=== PATIENT | male | born 1940 | race Caucasian/White ===

== ENCOUNTER 2024-08-19 09:04 | Emergency (ER) | payer MEDICARE ==
[~2024-08-19] VITALS: Ht 188 cm; Wt 104.3 kg
[~2024-08-19 09:04] MED LIST: AMOX TR-K CLV1 EAC2 PO; ELIQUIS5 MG PO; Z.0.LISINOPRIL2.5 MG; [UNRECOGNIZED DRUG - OTHER]
[2024-08-19 09:12] VITALS: TEMP 98.7
[2024-08-19 09:33] VITALS: PULSE 89; RESP 20
[2024-08-19 09:40] LABS: BASOPHILS % 0.4 % (0.0-1.0); EOSINOPHILS # (AUTO) 0.2 (0.0-0.4); EOSINOPHILS % 2.5 % (0.0-6.0); HEMOGLOBIN 14.1 g/dL (14.0-18.0); LYMPHOCYTES # (AUTO) 0.6 (1.0-3.2); LYMPHOCYTES % 7.4 % (18.0-39.1); MEAN CORPUSCULAR HEMOGLOBIN 32.1 pg (28-32); MEAN CORPUSCULAR HGB CONC 33.6 g/dL (31-35); MEAN CORPUSCULAR VOLUME 95.7 fL (81-99); MONOCYTES # (AUTO) 0.9 (0.2-0.8); MONOCYTES % 12.1 % (4.4-11.3); NEUTROPHILS # (AUTO) 5.8 (2.1-6.9); NEUTROPHILS % 76.5 % (38.7-80.0); PLATELET COUNT 243 x10e3/uL (140-360); RED BLOOD COUNT 4.39 x10e6/uL (4.3-5.7); RED CELL DISTRIBUTION WIDTH 12.1 % (11.7-14.4); WHITE BLOOD COUNT 7.58 x10e3/uL (4.8-10.8)
[2024-08-19 10:02] LABS: CORONAVIRUS COVID-19 AG NEGATIVE (NEGATIVE); INFLUENZA A AG NEGATIVE (NEGATIVE); INFLUENZA B AG NEGATIVE (NEGATIVE)
[2024-08-19 10:07] LABS: ALBUMIN 3.4 g/dL (3.5-5.0); ALBUMIN/GLOBULIN RATIO 0.9 (0.8-2.0); ANION GAP 15.4 mmol/L (8-16); BILIRUBIN,TOTAL 1.1 mg/dL (0.2-1.2); CALCIUM 8.7 mg/dL (8.4-10.2); CREATININE, SERUM 0.77 mg/dL (0.72-1.25); POTASSIUM 4.4 mmol/L (3.5-5.1); TOTAL PROTEIN 7.2 g/dL (6.5-8.1)
[2024-08-19 10:13] LABS: TROPONIN I 0.012 ng/mL (0-0.300)
[2024-08-19] MEDS ORDERED: DOXYCYCLINE HY100 MG PO (10:35)
[2024-08-19 10:45] VITALS: BP 132/78; PULSE 78; RESP 18; TEMP 97.5; O2SAT 96
== END 2024-08-19 10:46 | disposition home or self-care (01) ==
LOC: ER 09:10
DX: R06.02 Shortness of breath (principal); J06.9 Acute upper respiratory infection, unspecified; Z11.52 Encounter for screening for COVID-19; R94.31 Abnormal electrocardiogram [ECG] [EKG]
CPT/HCPCS: 36415; 71046; 80053; 84484; 85025; 93005; 99284

== ENCOUNTER 2024-08-23 13:29 | Emergency (ER) | payer MEDICARE ==
[~2024-08-23] VITALS: Ht 188 cm; Wt 104.3 kg
[2024-08-23 13:29] VITALS: TEMP 98.9
[~2024-08-23 13:29] MED LIST changes: +DOXYCYCLINE HY100 MG PO
[2024-08-23 14:09] LABS: BASOPHILS % 0.4 % (0.0-1.0); EOSINOPHILS # (AUTO) 0.2 (0.0-0.4); EOSINOPHILS % 2.2 % (0.0-6.0); HEMOGLOBIN 13.4 g/dL (14.0-18.0); LYMPHOCYTES # (AUTO) 0.7 (1.0-3.2); LYMPHOCYTES % 9.2 % (18.0-39.1); MEAN CORPUSCULAR HEMOGLOBIN 32.2 pg (28-32); MEAN CORPUSCULAR HGB CONC 34.4 g/dL (31-35); MEAN CORPUSCULAR VOLUME 93.8 fL (81-99); MONOCYTES # (AUTO) 0.8 (0.2-0.8); MONOCYTES % 10.2 % (4.4-11.3); NEUTROPHILS # (AUTO) 6.2 (2.1-6.9); NEUTROPHILS % 77.3 % (38.7-80.0); PLATELET COUNT 252 x10e3/uL (140-360); RED BLOOD COUNT 4.16 x10e6/uL (4.3-5.7); RED CELL DISTRIBUTION WIDTH 12.2 % (11.7-14.4); WHITE BLOOD COUNT 8.05 x10e3/uL (4.8-10.8)
[2024-08-23 14:29] LABS: ALBUMIN 3.3 g/dL (3.5-5.0); ALBUMIN/GLOBULIN RATIO 0.9 (0.8-2.0); ANION GAP 13.2 mmol/L (8-16); CALCIUM 8.5 mg/dL (8.4-10.2); CREATININE, SERUM 0.82 mg/dL (0.72-1.25); POTASSIUM 4.2 mmol/L (3.5-5.1)
[2024-08-23 14:35] LABS: TROPONIN I 0.008 ng/mL (0-0.300)
[2024-08-23 16:08] VITALS: PULSE 63; RESP 16
[2024-08-23 16:37] VITALS: BP 141/79; PULSE 66; RESP 18; TEMP 98.4; O2SAT 95
== END 2024-08-23 16:36 | disposition home or self-care (01) ==
LOC: ER 13:37
DX: R07.89 Other chest pain (principal); J06.9 Acute upper respiratory infection, unspecified; I48.91 Unspecified atrial fibrillation
CPT/HCPCS: 36415; 71045; 80053; 83880; 84484; 85025; 93005; 99284

== ENCOUNTER 2024-08-29 08:49 | Inpatient (IN) | payer MEDICARE ==
[~2024-08-29] VITALS: Ht 188 cm; Wt 104.3 kg
[2024-08-29] VITALS (7 sets, daily range): BP systolic 111–150; BP diastolic 64–91; PULSE 61–70; RESP 18–20; TEMP 97.6–98.5; O2SAT 92–99
[2024-08-29] MEDS ORDERED: SODIUM CHLORIDE FLUSH 10 ML SYR IV PRN (09:30)
[2024-08-29 10:55] LABS: BASOPHILS % 0.3 % (0.0-1.0); EOSINOPHILS # (AUTO) 0.2 (0.0-0.4); EOSINOPHILS % 2.3 % (0.0-6.0); HEMATOCRIT 41.5 % (38.2-49.6); HEMOGLOBIN 14.4 g/dL (14.0-18.0); LYMPHOCYTES # (AUTO) 0.7 (1.0-3.2); LYMPHOCYTES % 7.9 % (18.0-39.1); MEAN CORPUSCULAR HEMOGLOBIN 32.1 pg (28-32); MEAN CORPUSCULAR HGB CONC 34.7 g/dL (31-35); MEAN CORPUSCULAR VOLUME 92.6 fL (81-99); MONOCYTES # (AUTO) 0.9 (0.2-0.8); MONOCYTES % 9.8 % (4.4-11.3); NEUTROPHILS # (AUTO) 7.3 (2.1-6.9); NEUTROPHILS % 78.8 % (38.7-80.0); PLATELET COUNT 261 x10e3/uL (140-360); RED BLOOD COUNT 4.48 x10e6/uL (4.3-5.7); RED CELL DISTRIBUTION WIDTH 12.1 % (11.7-14.4); WHITE BLOOD COUNT 9.27 x10e3/uL (4.8-10.8)
[2024-08-29 11:15] LABS: CORONAVIRUS COVID-19 AG NEGATIVE (NEGATIVE); INFLUENZA A AG NEGATIVE (NEGATIVE); INFLUENZA B AG NEGATIVE (NEGATIVE)
[2024-08-29 11:29] LABS: ALBUMIN 3.2 g/dL (3.5-5.0); ALBUMIN/GLOBULIN RATIO 0.8 (0.8-2.0); ANION GAP 15.4 mmol/L (8-16); CALCIUM 8.7 mg/dL (8.4-10.2); CREATININE, SERUM 0.73 mg/dL (0.72-1.25); POTASSIUM 4.4 mmol/L (3.5-5.1); TOTAL PROTEIN 7.4 g/dL (6.5-8.1)
[2024-08-29 11:36] LABS: TROPONIN I 0.02 ng/mL (0-0.300)
[2024-08-29] MEDS ORDERED: ONDANSETRON HCL INJ 2MG/ML 2ML 2 MG/ML VIAL IV PRN (14:00)
[2024-08-29] MEDS ORDERED: SODIUM CHLORIDE FLUSH 10 ML SYR INJ PRN (14:00)
[2024-08-29] MEDS ORDERED: IOPAMIDOL 370 MG/ML 100 ML INFUS..BTL INJ ONE (15:36)
[2024-08-29 16:22] LABS: BILIRUBIN,URINE NEGATIVE (NEGATIVE); CLARITY,URINE CLEAR (CLEAR); COLOR,URINE YELLOW (YELLOW); GLUCOSE, URINE NEGATIVE (NEGATIVE); KETONES,URINE TRACE (NEGATIVE); LEUKOCYTE ESTERASE ,URINE NEGATIVE (NEGATIVE); NITRITE,URINE NEGATIVE (NEGATIVE); PH,URINE 7 (5 - 7); PROTEIN,URINE DIPSTICK NEGATIVE (NEGATIVE); URINE UROBILINOGEN 2 mg/dL (0.2 - 1)
[2024-08-29 16:27] LABS: BACTERIA,URINE FEW /HPF; EPITHELIAL CELLS,URINE FEW /LPF; RBC,URINE 0-5 /HPF (0-5); WBC,URINE (MAN) 0-5 /HPF (0-5)
[2024-08-29] MEDS ORDERED: DIPHENHYDRAMINE HCL 25 MG CAP PO PRN (16:45)
[2024-08-29] MEDS ORDERED: ALBUTEROL/IPRATROPIUM 3 ML NEB NEB PRN (16:45)
[2024-08-29] MEDS ORDERED: ACETAMINOPHEN 325 MG TAB PO PRN (16:45)
[2024-08-29] MEDS ORDERED: DEXTROSE 50% SYRINGE 50 ML IV PRN (16:45)
[2024-08-29] MEDS ORDERED: POTASSIUM CHLORIDE 20 MEQ TAB CR PO PRN (16:45)
[2024-08-29] MEDS ORDERED: DOCUSATE SODIUM 100 MG CAP PO PRN (16:45)
[2024-08-29] MEDS ORDERED: LIDOCAINE 4% PATCH TP PRN (16:45)
[2024-08-29] MEDS ORDERED: HYDRALAZINE HCL 20 MG/ML VIAL IV PRN (16:45)
[2024-08-29] MEDS ORDERED: SIMETHICONE 80 MG CHEW PO PRN (16:45)
[2024-08-29] MEDS: Doxycycline IV 100 MG in SODIUM CHLORIDE 0.9% 100 ML IV SCH (18:27)
[2024-08-29] MEDS: ENOXAPARIN SOD INJ 40 MG/0.4 ML SYR SC SCH (18:29)
[2024-08-29] MEDS: ALBUTEROL/IPRATROPIUM 3 ML NEB NEB SCH (19:43)
[2024-08-29] MEDS: BUDESONIDE 0.25 MG/2 ML NEB NEB SCH (19:50)
[2024-08-29] MEDS: MELATONIN 5 MG TABLET PO PRN (23:46)
[2024-08-29] MEDS: BENZONATATE 100 MG CAP PO PRN (23:47)
[2024-08-30] VITALS (12 sets, daily range): BP systolic 111–135; BP diastolic 64–79; PULSE 60–92; RESP 17–20; TEMP 97.4–98.3; O2SAT 92–100
[2024-08-30 07:34] LABS: BASOPHILS # (AUTO) 0.1 (0.0-0.1); BASOPHILS % 0.6 % (0.0-1.0); EOSINOPHILS # (AUTO) 0.3 (0.0-0.4); EOSINOPHILS % 3.3 % (0.0-6.0); HEMATOCRIT 41.4 % (38.2-49.6); HEMOGLOBIN 13.5 g/dL (14.0-18.0); LYMPHOCYTES # (AUTO) 0.7 (1.0-3.2); LYMPHOCYTES % 8.4 % (18.0-39.1); MEAN CORPUSCULAR HEMOGLOBIN 31.2 pg (28-32); MEAN CORPUSCULAR HGB CONC 32.6 g/dL (31-35); MEAN CORPUSCULAR VOLUME 95.6 fL (81-99); MONOCYTES # (AUTO) 0.9 (0.2-0.8); NEUTROPHILS # (AUTO) 6.1 (2.1-6.9); NEUTROPHILS % 75.1 % (38.7-80.0); PLATELET COUNT 246 x10e3/uL (140-360); RED BLOOD COUNT 4.33 x10e6/uL (4.3-5.7); RED CELL DISTRIBUTION WIDTH 12.1 % (11.7-14.4); WHITE BLOOD COUNT 8.17 x10e3/uL (4.8-10.8)
[2024-08-30 07:59] LABS: ALBUMIN/GLOBULIN RATIO 0.8 (0.8-2.0); ANION GAP 12.3 mmol/L (8-16); BILIRUBIN,TOTAL 0.6 mg/dL (0.2-1.2); CALCIUM 8.3 mg/dL (8.4-10.2); CREATININE, SERUM 0.85 mg/dL (0.72-1.25); POTASSIUM 4.3 mmol/L (3.5-5.1); TOTAL PROTEIN 6.6 g/dL (6.5-8.1)
[2024-08-30 08:35] LABS: MAGNESIUM 1.8 MG/DL (1.3-2.1); PHOSPHORUS 3.8 MG/DL (2.3-4.7)
[2024-08-30] MEDS: PANTOPRAZOLE SOD 40 MG TABEC PO SCH (08:35)
[2024-08-30 08:55] LABS: THYROID STIMULATING HORMONE 4.675 uIU/mL (0.350-4.940)
[2024-08-31] VITALS (12 sets, daily range): BP systolic 133–143; BP diastolic 73–92; PULSE 70–90; RESP 17–20; TEMP 97.2–98; O2SAT 90–100
[2024-08-31 06:39] LABS: BASOPHILS % 0.3 % (0.0-1.0); EOSINOPHILS # (AUTO) 0.5 (0.0-0.4); EOSINOPHILS % 7.6 % (0.0-6.0); HEMATOCRIT 34.3 % (38.2-49.6); HEMOGLOBIN 10.9 g/dL (14.0-18.0); LYMPHOCYTES # (AUTO) 0.6 (1.0-3.2); LYMPHOCYTES % 9.7 % (18.0-39.1); MEAN CORPUSCULAR HEMOGLOBIN 31.4 pg (28-32); MEAN CORPUSCULAR HGB CONC 31.8 g/dL (31-35); MEAN CORPUSCULAR VOLUME 98.8 fL (81-99); MONOCYTES # (AUTO) 0.6 (0.2-0.8); MONOCYTES % 10.2 % (4.4-11.3); NEUTROPHILS # (AUTO) 4.5 (2.1-6.9); NEUTROPHILS % 70.9 % (38.7-80.0); PLATELET COUNT 164 x10e3/uL (140-360); RED BLOOD COUNT 3.47 x10e6/uL (4.3-5.7); RED CELL DISTRIBUTION WIDTH 12.2 % (11.7-14.4); WHITE BLOOD COUNT 6.29 x10e3/uL (4.8-10.8)
[2024-08-31 08:15] LABS: ANION GAP 13.8 mmol/L (8-16); CALCIUM 8.4 mg/dL (8.4-10.2); CREATININE, SERUM 0.78 mg/dL (0.72-1.25); POTASSIUM 3.8 mmol/L (3.5-5.1)
[2024-08-31] MEDS: SODIUM CHLORIDE 0.9% 250ML 250 ML ONE (09:45)
[2024-08-31] MEDS: APIXABAN 5 MG TABLET PO SCH (18:18)
[2024-09-01] VITALS (12 sets, daily range): BP systolic 122–168; BP diastolic 70–88; PULSE 64–98; RESP 16–20; TEMP 97.5–98.3; O2SAT 91–100
[2024-09-01] MEDS: METHYLPREDNISOLONE SOD SUCC 40 MG/ML VIAL 1ML IV SCH (15:27)
[2024-09-02] VITALS (12 sets, daily range): BP systolic 119–157; BP diastolic 66–81; PULSE 75–102; RESP 16–22; TEMP 97.9–98.5; O2SAT 94–97
[2024-09-02] MEDS: DOXYCYCLINE HYCLATE TABLET 100 MG TAB PO SCH (16:34)
[2024-09-03] VITALS (12 sets, daily range): BP systolic 137–147; BP diastolic 70–94; PULSE 81–103; RESP 18–22; TEMP 97.1–97.8; O2SAT 93–100
[2024-09-03 16:07] LABS: ANION GAP 16.1 mmol/L (8-16); CALCIUM 9.1 mg/dL (8.4-10.2); CREATININE, SERUM 0.86 mg/dL (0.72-1.25); POTASSIUM 4.1 mmol/L (3.5-5.1)
[2024-09-04] VITALS (11 sets, daily range): BP systolic 132–160; BP diastolic 82–93; PULSE 80–95; RESP 18–21; TEMP 97–98.6; O2SAT 92–100
[2024-09-04 10:09] LABS: CHOL/HDL RATIO 2.5 (3.9-4.7)
[2024-09-04] MEDS: LOSARTAN POTASSIUM 25 MG TAB PO SCH (10:14)
[2024-09-04] MEDS: METOPROLOL SUCCINATE 25 MG TAB XL PO SCH (10:15)
[2024-09-04] MEDS: PREDNISONE 20 MG TAB PO SCH (10:16)
[2024-09-04] MEDS: ATORVASTATIN 20 MG TAB PO SCH (22:04)
[2024-09-05] VITALS (9 sets, daily range): BP systolic 121–148; BP diastolic 88–93; PULSE 80–93; RESP 17–18; TEMP 98–98.2; O2SAT 83–97
[2024-09-05] MEDS ORDERED: ONDANSETRON HCL 4 MG ORAL DISINTEGRATING TAB PO PRN (14:30)
[2024-09-05] MEDS ORDERED: COZAAR25 MG PO (15:00)
[2024-09-05] MEDS ORDERED: TOPROL XL25 MG PO (15:00)
== END 2024-09-05 15:24 | disposition home or self-care (01) | DRG 196 ==
LOC: ER 08:58 → ERHOLD 13:56 → MED/SURG3 14:30 → OBSVTOIN 16:38
PROVIDERS: ADMIT Internal Medicine; ATTEND Internal Medicine
DX: J84.10 Pulmonary fibrosis, unspecified (principal); J18.9 Pneumonia, unspecified organism; J96.01 Acute respiratory failure with hypoxia; I48.20 Chronic atrial fibrillation, unspecified; I50.30 Unspecified diastolic (congestive) heart failure; I11.0 Hypertensive heart disease with heart failure; I27.20 Pulmonary hypertension, unspecified; T45.516A Underdosing of anticoagulants, initial encounter; Z91.128 Patient's intentional underdosing of medication regimen for other reason; Z11.52 Encounter for screening for COVID-19; Z79.01 Long term (current) use of anticoagulants; Z99.81 Dependence on supplemental oxygen; Z82.5 Family history of asthma and other chronic lower respiratory diseases
CPT/HCPCS: 36415; 71046; 71260; 74230; 80048; 80053; 80061; 81001; 83036; 83735; 83880; 84100; 84443; 84484; 85025; 93005; 93306; 94640; 94760; 94799; 99252; 99284; J1650; J2470; J2543; J2919; J7050; J7512; Q9967

== ENCOUNTER 2025-02-11 21:54 | Emergency (ER) | payer MEDICARE ==
[~2025-02-11] VITALS: Ht 188 cm; Wt 90.7 kg
[~2025-02-11 21:54] MED LIST changes: +COZAAR25 MG PO; +TOPROL XL25 MG PO
[2025-02-11 21:57] VITALS: TEMP 98.2
[2025-02-11 23:18] LABS: CORONAVIRUS COVID-19 AG POSITIVE (NEGATIVE)
[2025-02-11 23:31] VITALS: PULSE 64; RESP 24
[2025-02-11] MEDS ORDERED: PAXLOVID 150-11 EAC2 PO (23:39)
[2025-02-12 00:10] VITALS: BP 126/78; PULSE 72; RESP 22; TEMP 98.4; O2SAT 98
== END 2025-02-12 00:18 | disposition home or self-care (01) ==
LOC: ER 22:00
DX: R05.9 Cough, unspecified (principal); U07.1 COVID-19; R09.89 Other specified symptoms and signs involving the circulatory and respiratory systems; I48.91 Unspecified atrial fibrillation
CPT/HCPCS: 71045; 99284